=== PATIENT | male | born 1975 | race American Indian/Alaskan Native ===

== ENCOUNTER 2017-12-10 09:53 | Outpatient (CLI) | payer OTHER ==
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
== END 2017-12-10 09:54 | disposition home or self-care (01) ==
LOC: XRAY 09:53
PROVIDERS: ATTEND Internal Medicine
DX: M25.871 Other specified joint disorders, right ankle and foot (principal); M21.961 Unspecified acquired deformity of right lower leg; M85.871 Other specified disorders of bone density and structure, right ankle and foot; M19.071 Primary osteoarthritis, right ankle and foot; M25.869 Other specified joint disorders, unspecified knee; M53.80 Other specified dorsopathies, site unspecified; G43.909 Migraine, unspecified, not intractable, without status migrainosus